=== PATIENT | female | born 1960 | race Two or more races ===

== ENCOUNTER → 2018-07-02 11:21 | Outpatient (CLI) | payer OTHER, SELFPAY ==
--- NOTE | 2018-07-01 15:15 | EMB_PTH ---
PATIENT: EMILY WASHINGTON LOC: [facility] U#:[id number] AGE/SX: 65/F ROOM: RE07/02/[address]: Dr. Homero Oliva MD : 1960 BED: DIS: SPEC #: [id number] RECD: 07/02/18 10:40 STATUS: MICHELLE THI #: [id number] HARPER: 07/01/18 15:[address]: Homero Oliva DEPT: SURGICAL PATHOLOGY RECD BY: Michael Graf Tissues: A - Endometrium, NOS B - Uterine cervix, NOS Procedures: Surgery Specimen Level IV HEADER OPERATION: Endometrial biopsy, cervical polypectomy PRE-OP DIAGNOSIS: N84.1, N95.0 TISSUE SUBMITTED: A - Endometrial biopsy, B - Cervical polyp MICROSCOPIC DIAGNOSIS A. Endometrium, biopsy: Polypoid fragments of simple hyperplasia without atypia. B. Cervical polyp, biopsy: Fragments of benign endocervical polyp, inflamed. AM:reshma 07/03/18 MICROSCOPIC DESCRIPTION Slides are reviewed. GROSS DESCRIPTION A - Received in fixative is one container labeled with the patient's name and designated endometrial biopsy. The specimen consists of multiple irregular fragments of light to dark lennon soft tissue that in aggregate measure 2.5 x 2 x 0.1 cm. The specimen is totally submitted in one cassette. B - Received in fixative is one container labeled with the patient's name and designated cervical polyp. The specimen consists of multiple irregular and polypoid fragments of light lennon soft tissue that in aggregate measure 2 x 1.5 x 0.2 cm. The specimen is totally submitted in one cassette. / SJ:rg 07/02/18 TC:1 CPT: 83056 x2
[2018-07-04 13:15] LABS: HPV Reflexed? NOT INDICATED
--- OUTSIDE RECORDS SUMMARY | 2018-10-03 15:30 | XMS RPT_ITS ---
:1960 Author Organization OH[facility] Care Team Providers Name Role Phone CHIKA DELGADILLO Admitting Unavailable CHIKA DELGADILLO Attending Unavailable CHIKA DELGADILLO Primary Care Unavailable MEENU JAMIL MD Consulting Unavailable PROVIDER, UNKNOWN Consulting Unavailable PROVIDER, UNKNOWN Consulting Unavailable PROVIDER, UNKNOWN Consulting Unavailable OMERO FERREIRA., DR. TEJAL Chapin Attending Unavailable Chika Delgadillo Attending Unavailable Chika Delgadillo Referring Unavailable PROBLEMS PROBLEMS DATE TYPE CONDITION / CODE ATTENDING STATUS SOURCE 07/02/2018 Unknown Z12.4 - Encounter Chika Delgadillo Active [facility] for screening for [facility] neoplasm of Repository cervix / Z12.4(ICD-10) 11/11/2017 Admitting OMERO Dinero MD., Active [facility] Diagnosis unspecified / TEJAL Bennett E78.5(ICD-10) Repository PROCEDURES PROCEDURES No Procedure Records FoundRESULTS RESULTS ENDOMETRIAL BX/CURETTINGS Observed: 07/01/2018 Status: F Source: [facility] 3:15 PM [facility] REPOSITORY Patient: EMILY WASHINGTON : 1960 (58/F) Acct Num: [id number] Phys: Chika Delgadillo MD Unit Num: [id number] Loc: [facility] Specimen: [id number] Received: 07/02/18 - 1040 Spec Type: ENDOM BX/C TISSUES 1 TISSUES: A. Endometrium, NOS B. Uterine cervix, NOS GROSS DESCRIPTION A - Received in fixative is one container labeled with the patient's name and designated endometrial biopsy. The specimen consists of multiple irregular fragments of light to dark lennon soft tissue that in aggregate measure 2.5 x 2 x 0.1 cm. The specimen is totally submitted in one cassette. B - Received in fixative is one container labeled with the patient's name and designated cervical polyp. The specimen consists of multiple irregular and polypoid fragments of light lennon soft tissue that in aggregate measure 2 x 1.5 x 0.2 cm. The specimen is totally submitted in one cassette. / SJ:reshma 07/02/18 TC:1 CPT: 99619 x2 HEADER OPERATION: Endometrial biopsy, cervical polypectomy PRE-OP DIAGNOSIS: N84.1, N95.0 TISSUE SUBMITTED: A - Endometrial biopsy, B - Cervical polyp MICROSCOPIC DESCRIPTION Slides are reviewed. MICROSCOPIC DIAGNOSIS A. Endometrium, biopsy: Polypoid fragments of simple hyperplasia without atypia. B. Cervical polyp, biopsy: Fragments of benign endocervical polyp, inflamed. AM:reshma 07/03/18 Signed Jourdan Manny, DO 07/03/18 <signature on file> Performed By: #### PEMB #### [facility] [address] 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 of containers..01 ThinPrep Vial TYPE CODE TESTS RESULT OUT OF RANGE REFERENCE UNITS LAB L7400.0800 . Normal DIAGN Comment Result Comment: NEGATIVE FOR INTRAEPITHELIAL LESION AND MALIGNANCY. LAB L7400.0900 . Normal ADEQ Comment Result Comment: Satisfactory for evaluation. Endocervical and/or squamous metaplastic cells (endocervical component) are present. LAB L7400.1400 . Normal PERFORM Comment Result Comment: Joshua Nichole, Him Coder (ASCP) LAB L7400.2575 . Normal TEST METHOD Comment Result Comment: This liquid based ThinPrep(R) pap test was screened with the use of an image guided system. LAB L7400.2600 . Normal . COMM LAB L7400.2700 . Normal PAPSMR Comment Result Comment: The Pap smear is a screening test designed to aid in the detection of premalignant and malignant conditions of the uterine cervix. It is not a diagnostic procedure and should not be used as the sole means of detecting cervical cancer. Both false-positive and false-negative reports do occur. LAB L7400.2800 . Normal HPV RFLX Comment Result Comment: The HPV DNA reflex criteria were not met with this specimen result therefore, no HPV testing was performed. Performed at: - [facility] [id number] Pesticide Applicator: Cari Palacios MD, Phone: [phone] Performed By: #### L7400.0357 #### [facility] (refer to report for specific site) refer to report for address and phone number LIPID Collected: 11/11/2017 Status: F Source: [facility] 9:50 AM [facility] REPOSITORY TYPE CODE TESTS RESULT OUT OF REFERENCE UNITS RANGE LAB CHOL(LOINC 50-199 mg/dL ) Cholesterol 186 Result Comment: Cholesterol Reference Interval: Less than 200 Desirable 200-239 Borderline high risk 240 and above High risk LAB TRIG(LOINC) 3-149 mg/dL Triglycerides 90 Result Comment: Triglyceride Reference Interval: Less than 150 Normal 150-199 Borderline high risk 200-499 High risk 500 or higher Very high risk LAB HD(LOINC) 40-59 mg/dL HDL High Cholesterol 69 Result Comment: HDL Reference Interval: Less than 40 Low - high risk 60 or above Optimal/lowers risk LAB LDL(LOINC) 0-129 mg/dL LDL Cholesterol 99 Result Comment: LDL is a calculated result and requires a 12-hr fast. LDL Reference Interval: Less than 100 Optimal 100-129 Near or above optimal 130-159 Borderline high risk 160-189 High risk 190 and above Very high risk Performed By: #### LIPID #### [facility] [address] [place] [id number] MAMM DIGITAL BILAT Observed: 10/29/2017 Status: F Source: [place] SCREEN 11:25 AM [facility] REPOSITORY [place] [id number] Patient: EMILY WASHINGTON. Phone#: : [phone] Age: 57 Gender: F Pt. Type: Out Account: [id number] Location: Ordering: CHIKA DELGADILLO Exam Date: 10/29/2017/8:06 Family Phys: MEENU JAMIL Charge Code: [id number] Physician: Tom Green Order #: [id number] Dose#: PROCEDURE: MAMM BILAT DIGITAL SCREENING WITH CAD COMPARISON: [facility], BILAT SCREENING, 01/24/2016, 13:35. INDICATIONS: Screening BREAST COMPOSITION: Scattered fibroglandular densities (25-50% glandular). FINDINGS: DIAGNOSTIC CATEGORY 1--NEGATIVE ASSESSMENT. RIGHT BREAST: No significant suspicious finding. No significant change has occurred. LEFT BREAST: No significant suspicious finding. No significant change has occurred. RECOMMENDATIONS: ROUTINE MAMMOGRAM AND CLINICAL EVALUATION. PLEASE NOTE: A NORMAL MAMMOGRAM DOES NOT EXCLUDE THE POSSIBILITY OF BREAST CANCER. A CLINICALLY SUSPICIOUS PALPABLE LUMP SHOULD BE BIOPSIED. THIS FACILITY UTILIZES A REMINDER SYSTEM TO ENSURE THAT ALL PATIENTS RECEIVE REMINDER LETTERS FOR APPOINTMENTS. THIS INCLUDES REMINDERS FOR ROUTINE MAMMOGRAMS, DIAGNOSITC MAMMOGRAMS, OR OTHER BREAST IMAGING INTERVENTIONS WHEN APPROPRIATE. THIS PATIENT WILL BE PLACED IN THE APPROPRIATE REMINDER SYSTEM. Dictated by: Clarita Brooks MD on 10/29/2017 at 12:05 Approved by: Clarita Brooks MD on 10/29/2017 at 12:05 ALLERGIES ALLERGIES No Allergies Records FoundENCOUNTERS ENCOUNTERS ADMIT/DISCHARGE ACCOUNT NUMBER ADMITTING ENCOUNTER LOCATION SOURCE CLASS 07/02/2018 [id number] Ambulatory [facility] ding:[facility] Repository 11/11/2017/11/16/19 [id number] Ambulatory [address] BBuilding:BE [facility] Repository 10/29/2017/10/30/19 [id number] CHIKA DELGADILLO Ambulatory [address] Repository PAYERS PAYERS ENCOUNTER GUARANTOR PAYER SUBSCRIBER SOURCE 07/02/2018 EMILY [facility] Primary EMILY [place] [id number] [place] Insurance:MEDICAL STUTZMANDOB: [place] [address], [place] [id number]: . Number: Repository () [id number] Date:[id number] [address] [place] [id number]: 07/02/2018 Secondary NOT GIVENUNK [place] Insurance:SELF PAY [facility] Number: Effective Repository Date:2018-07-02 11/11/2017 EMILY [facility] STUTZMANDOB: Insurance:MEDICAL STUTZMANDOB: [facility] [address] [id number] Repository [facility] Number: 8 [facility] [address] [id number] [facility] [place] [place] [address]Ngv: ([phone]) Date:2017-11-11 [id number]: (HP) [phone] Name:BPO BOX ()Tel: [phone], [place] 000-0000 () [phone]: 10/29/2017 EMILY [facility] CenterUTZMANDOB: Insurance:MEDICAL STUTZMANDOB: [facility] [id number] [facility] [id number] [facility] [address] OUTPATIENTPolicy 8 [facility] Repository Cb MENDOZA Number: 62Cb SEARS [id number]: [id number] Date:Plan Name:M3P O () [address] [place] [address] [id number]:
== END ==
PROVIDERS: Referring Provider Obstetrics & Gynecology; Visit Provider Obstetrics & Gynecology
DX: N85.01 Benign endometrial hyperplasia (principal); N84.1 Polyp of cervix uteri; Z12.4 Encounter for screening for malignant neoplasm of cervix
CPT/HCPCS: 87624; 88175; 88305; G0145

== ENCOUNTER 2018-08-18 05:37 | Day surgery (SDC) | payer OTHER, SELFPAY ==
[2018-08-13 15:48] LABS: International Normalized Ratio 0.9; Partial Thromboplast Time 28.1 Seconds (24.1-36.2); Prothrombin Time (Protime)PT. 12.6 SECONDS (11.7-14.9)
[2018-08-13 15:51] LABS: Hematocrit 40.2 % (37-47); Hemoglobin 13.5 g/dl (12.0-15.0); Mean Corp Hgb Conc 33.6 g/gl (32-36); Mean Corpuscular Hgb 31.9 pg (27.0-32.0); Mean Platelet Vol. 10.4 fl (6.2-12.0); Platelet Count 283 K/mm3 (150-450); RBC Distribution Width SD 40.9 fl (35.1-43.9); Red Blood Count 4.23 M/mm3 (4.2-5.4); White Blood Count 6.1 K/mm3 (4.4-11.0)
[2018-08-13 15:54] LABS: Scan Indicated on CBC? Y/N NO
[2018-08-13 16:03] LABS: ALB/GLOB Ratio 0.9 RATIO (0.9-2.4); AST(SGOT) 19 U/L (15-37); Alanine Aminotransfer ALT/SGPT 23 U/L (13-56); Alkaline Phosphatase 73 U/L (45-117); Anion Gap 10 (5-15); BUN 14 mg/dL (7-18); BUN/Creat Ratio 16.3 RATIO (10-20); Calcium,Total 9.2 mg/dL (8.5-10.1); Chloride 102 mmol/L (98-107); Creatinine, Serum 0.86 mg/dL (0.55-1.02); EST Glomerular Filtration Rate 72 mL/min (>60); Est Glom Filt Rate - Afr Amer 87 mL/min (>60); Globulin 4.4 g/dL (2.2-4.2); Glucose 80 mg/dL (74-106); Potassium 3.5 mmol/L (3.5-5.1); Protein, Total 8.4 g/dL (6.4-8.2); Sodium Level 141 mmol/L (136-145)
--- NOTE | 2018-08-17 17:27 | PCM.HP.BLA ---
History and Physical Date of Admission: 08/18/18 Surgical History and Physical Adilia Wilson, a 58 year old female 2 0 0 0 2, presents for RAVH/BSO on August 18, 2018 at 0800. -- Postmenopausal Bleeding and Simple EM Hyperplasia -- Irregular pap (ASCUS) and cervical polyp. EMBx showed simple endometrial hyperplasia and patient desires proceeding with hysterectomy rather than use ongoing progesterone witdrawal. MEDICATIONS HISTORY: Patient is also takin. Liptor 10mg, 1 PO daily 2. Levaquin 500 mg tablet ALLERGIES: NKDA Infections - Chicken pox Illnesses - no serious past illnesses Accidents - no injuries of consequence Hospitalizations - see surgery Review of Systems: GENERAL - Denies fever, or chills SKIN - Denies skin changes EYES - Denies visual changes EARS - Denies difficulty hearing NOSE - Denies nasal congestion or bleeding MOUTH - Denies sore throat or difficulty swallowing NECK - Denies pain or swelling RESPIRATORY - Denies shortness of breath or wheezing CARDIOVASCULAR - Denies palpitations or chest pain GASTROINTESTINAL - Denies nausea, vomiting, diarrhea, constipation GENITOURINARY - Denies dysuria, frequency of urination, incontinence of urine MUSCULOSKELETAL - Denies joint or muscle pain NEUROLOGICAL - Denies localized numbness or weakness PSYCHIATRIC - Denies depression or anxiety ENDOCRINE - Denies heat or cold intolerance, weight loss or gain HEMATO-IMMUNOLOGIC - Denies excessive bleeding with cuts SOCIAL HISTORY: Alcohol Use - denies drinking Smoking - denies smoking Diet - balanced Diet Lifestyle - moderate stress lifestyle and Exercise - active Seat Belt Use - always 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 Father: Diabetes and HTN/ High Cholesterol. Paternal Grandmother: Breast Cancer and Cervical Cancer. MENSTRUAL HISTORY: LMP Known?- DefiniteAmount/Duration - 3 days light, Regularity - Irregular, Frequency - variable days, LMP - 07/31/18 PAST PREGNANCIES: Total Pregnancies - 2; Full Term Pregnancies - 2; Premature - 0; Abortions, Induced - 0; Abortions, Spontaneous - 0; Ectopics - 0; Multiple Births - 0; Living Children - 2 SURGICAL HISTORY: 1. ; - Failure to Progress 2. ; - repeat PHYSICAL EXAM BP- 154/74 Sitting, Right arm, regular cuff Weight- 156.27576 lbs Height- 60.00 inch BMI:30.53 CONSTITUTIONAL - NAD, well nourished, and well developed SKIN - No rash, lesions, or ulcers HEENT - Normocephalic, PERRLA, EOMI NECK - No nodes, no nuchal rigidity and thyroid normal size and texture LYMPH NODES - Palpation of lymph nodes in neck and groins within normal limits LUNGS - CTA x2 without wheezes, crackles or rales CARDIAC - Regular rate and rhythm without rubs, murmurs, or gallops BREAST - No dominant masses, no tenderness, no axillary adenopathy, no nipple discharge, no skin changes ABDOMEN - Without hepatosplenomegaly, distention, masses, rebound, or guarding; normal bowel sounds; no hernias EXTREMITIES - No edema or calf tenderness NEUROLOGICAL - Cranial nerves II-XII grossly intact PSYCHIATRIC - A and O to time, place, person, mood and affect DETAILED PELVIC EXAM External Genitial Vagina - non-tender without lesions Urethra/Urethral Meatus - non-tender Bladder - non-tender Vagina - loss of rugae Cervix - without cervical motion tenderness and has normal size and features without evident lesions and 0.25 cm polyp noted on posterior cervix removed with ring forceps Uterus - 5-6 cm in size, mobile and nontender Adnexa - clear without massess or tenderness ASSESSMENT/PLAN: 1. Postmenopausal Bleeding and Simple Endometrial Hyperplasia Without Atypia Discussed options for treatment including ongoing progesterone vs proceeding with simple hysterectomy. Pt desires proceeding with RAVH/BSO. Discussed RBAs and all questions answered.
--- NOTE | 2018-08-17 17:30 | HP.PCM_ITS ---
History and Physical Date of Admission: 08/18/18 Surgical History and Physical Adilia Wilson, a 58 year old female 2 0 0 0 2, presents for RAVH/BSO on August 18, 2018 at 0800. -- Postmenopausal Bleeding and Simple EM Hyperplasia -- Irregular pap (ASCUS) and cervical polyp. EMBx showed simple endometrial hyperplasia and patient desires proceeding with hysterectomy rather than use ongoing progesterone witdrawal. MEDICATIONS HISTORY: Patient is also takin. Liptor 10mg, 1 PO daily 2. Levaquin 500 mg tablet ALLERGIES: NKDA Infections - Chicken pox Illnesses - no serious past illnesses Accidents - no injuries of consequence Hospitalizations - see surgery Review of Systems: GENERAL - Denies fever, or chills SKIN - Denies skin changes EYES - Denies visual changes EARS - Denies difficulty hearing NOSE - Denies nasal congestion or bleeding MOUTH - Denies sore throat or difficulty swallowing NECK - Denies pain or swelling RESPIRATORY - Denies shortness of breath or wheezing CARDIOVASCULAR - Denies palpitations or chest pain GASTROINTESTINAL - Denies nausea, vomiting, diarrhea, constipation GENITOURINARY - Denies dysuria, frequency of urination, incontinence of urine MUSCULOSKELETAL - Denies joint or muscle pain NEUROLOGICAL - Denies localized numbness or weakness PSYCHIATRIC - Denies depression or anxiety ENDOCRINE - Denies heat or cold intolerance, weight loss or gain HEMATO-IMMUNOLOGIC - Denies excessive bleeding with cuts SOCIAL HISTORY: Alcohol Use - denies drinking Smoking - denies smoking Diet - balanced Diet Lifestyle - moderate stress lifestyle and Exercise - active Seat Belt Use - always 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 Father: Diabetes and HTN/ High Cholesterol. Paternal Grandmother: Breast Cancer and Cervical Cancer. MENSTRUAL HISTORY: LMP Known?- DefiniteAmount/Duration - 3 days light, Regularity - Irregular, Frequency - variable days, LMP - 07/31/18 PAST PREGNANCIES: Total Pregnancies - 2; Full Term Pregnancies - 2; Premature - 0; Abortions, Induced - 0; Abortions, Spontaneous - 0; Ectopics - 0; Multiple Births - 0; Living Children - 2 SURGICAL HISTORY: 1. ; - Failure to Progress 2. ; - repeat PHYSICAL EXAM BP- 154/74 Sitting, Right arm, regular cuff Weight- 156.25142 lbs Height- 60.00 inch BMI:30.53 CONSTITUTIONAL - NAD, well nourished, and well developed SKIN - No rash, lesions, or ulcers HEENT - Normocephalic, PERRLA, EOMI NECK - No nodes, no nuchal rigidity and thyroid normal size and texture LYMPH NODES - Palpation of lymph nodes in neck and groins within normal limits LUNGS - CTA x2 without wheezes, crackles or rales CARDIAC - Regular rate and rhythm without rubs, murmurs, or gallops BREAST - No dominant masses, no tenderness, no axillary adenopathy, no nipple discharge, no skin changes ABDOMEN - Without hepatosplenomegaly, distention, masses, rebound, or guarding; normal bowel sounds; no hernias EXTREMITIES - No edema or calf tenderness NEUROLOGICAL - Cranial nerves II-XII grossly intact PSYCHIATRIC - A and O to time, place, person, mood and affect DETAILED PELVIC EXAM External Genitial Vagina - non-tender without lesions Urethra/Urethral Meatus - non-tender Bladder - non-tender Vagina - loss of rugae Cervix - without cervical motion tenderness and has normal size and features without evident lesions and 0.25 cm polyp noted on posterior cervix removed with ring forceps Uterus - 5-6 cm in size, mobile and nontender Adnexa - clear without massess or tenderness ASSESSMENT/PLAN: 1. Postmenopausal Bleeding and Simple Endometrial Hyperplasia Without Atypia Discussed options for treatment including ongoing progesterone vs proceeding with simple hysterectomy. Pt desires proceeding with RAVH/BSO. Discussed RBAs and all questions answered.
[2018-08-18] VITALS (11 sets, daily range): BP systolic 90–152; BP diastolic 53–73; PULSE 61–95; RESP 16–18; TEMP 36.5–37.3; O2SAT 92–100; BMI 29.9; BMI 30.2
--- NOTE | 2018-08-18 08:00 | HYST_PTH ---
PATIENT: EMILY WASHINGTON [place] [facility] [place][id number] AGE/SX: 58/F ROOM: RE08/18/[address]: Dr. Homero Oliva MD : 1960 BED: DIS: 08/19/2018 SPEC #: [id number] RECD: 08/18/18 12:28 STATUS: MICHELLE HANKSCarlos #: [id number] HARPER: 08/18/18 08:[address]: Homero Oliva DEPT: SURGICAL PATHOLOGY RECD BY: Michael Graf ENTERED: 08/18/18 14:04 SP TYPE: HYSTERECT OTHR DR: Dr. Manjula Bain MD Tissues: Uterus, NOS Procedures: Surgery Specimen Level V HEADER OPERATION: Robotic assisted vaginal hysterectomy, bilateral salpingo-oophorectomy PRE-OP DIAGNOSIS: Postmenopausal bleeding and simple endometrial hyperplasia without atypia TISSUE SUBMITTED: Uterus, cervix, bilateral fallopian tubes and bilateral ovaries MICROSCOPIC DIAGNOSIS Uterus, hysterectomy: Cervix - mild chronic inflammation and nabothian cyst. Endometrium - focal simple hyperplasia without atypia. Myometrium - adenomyosis. Right ovary - benign hemorrhagic cyst. Right fallopian tube - no pathologic change. Left ovary - hemorrhagic corpus luteal cyst and benign epithelial cyst. Left fallopian tube - no pathologic change. AM:reshma 08/19/18 MICROSCOPIC DESCRIPTION Slides are reviewed. GROSS DESCRIPTION Received in fixative is one container labeled with the patient's name and designated uterus. The specimen consists of a uterus with attached right and left fallopian tubes and ovaries. The uterus with cervix measures 8.5 x 5.2 x 4 cm and weighs 72.6 gm. The ectocervix is oval in contour and grossly unremarkable. The endocervical canal measures 3.2 cm in length and is grossly unremarkable. The triangular endometrial cavity measures 3.5 x 3 cm. The velvety, reddish-light lennon endometrium measures up to 0.2 cm in thickness. The myometrium measures 1.6 cm in length and grossly is consistent with adenomyosis. The right ovary is yellow-pink and crinkled in appearance measuring 2 x 1.2 x 1 cm. Serial sections reveal a single blood filled cyst measuring 5 mm in greatest dimension. The adjacent fallopian tube measures 7 cm in length and 0.6 cm in average diameter. No tubo-ovarian adhesions are seen. The left ovary is similar in appearance to the right ovary and measures 3 x 1.6 x 1 cm. Serial sections reveal multiple cysts ranging in size from 0.5 to 0.6 cm and containing clear to bloody fluid. The adjacent left fallopian tube is similar in appearance to right and measures 6.5 cm in length and 0.5 cm in average diameter. No tubo-ovarian adhesions are seen. The fimbriated end has a normal villous appearance. Adjacent to the fimbriated end is a smooth glistening cyst containing clear fluid. Electric Cutter Operator sections are submitted in 11 cassettes as follows: 1 - anterior cervix, 2 - posterior cervix, 3 & 4 - anterior myometrial wall, 5 - remainder of anterior endometrium with adjacent myometrium, 6 & 7 - posterior myometrial wall, 8 & 9 - remainder of posterior endometrium and adjacent myometrium, 10 - right fallopian tube and ovary, 11 - left fallopian tube, ovary and paratubal cyst. / AM:reshma 08/18/18 TC:5 CPT: 94890
--- NOTE | 2018-08-18 08:10 | OP.PCM_ITS ---
Report of Operation Date of Procedure: 08/18/18 Pre-Operative Diagnosis: Simple Endometrial Hyperplasia, Postmenopausal Bleeding Post-Operative Diagnosis: Simple Endometrial Hyperplasia, Postmenopausal Bleeding, Dense Adhesions Surgery/Procedure Performed:: Robotic Assisted Vaginal Hysterectomy, Bilateral Salpingo-Oophorectomy, Lysis of Adhesions Description of Surgical Findings:: 8 cm uterus with normal-appearing fallopian tubes and ovaries. Dense adhesions of the omentum to the anterior abdominal wall. Dense adhesions of the uterus to the anterior abdominal wall. Dense adhesions of the rectosigmoid to the posterior aspect of the cervix. Adhesions of the ovaries to the pelvic sidewalls. retail seasonal specialist: Rebeca Simms retail seasonal specialist: Michael Tobin Type of Anesthesia:: Epidural Anesthesiologist: Filipe Ayala Estimated Blood Loss (mL): Minimal Fluids Replaced: Crystalloid Description of Procedure: Surgeon: Homero Oliva MD, FACOG Indication: This is a 58 year old patient who has been having problems with postmenopausal bleeding and simple endometrial hyperplasia. Patient has had 2 prior sections. The patient declines long-term progesterone use. The patient has been counseled regarding the risks, benefits and alternatives of this procedure including the possibility of bleeding, infection, and injury to surrounding structures such as bowel bladder and all questions were answered. Procedure: Pt taken to the operating room where after induction of general anesthesia the patient was prepped and draped in the usual sterile fashion and placed on a non-slip Huggy-u-vac device. Trendendelenburg test was satisfactory. Bladder was drained of urine with a Nguyễn catheter which was left in place. Anterior cervix grasped and cervix was dilated to about 3-4 mm. Uterus sounded to 8-9 cms. 0-Vicryl suture was placed at the 3:00 and 9:00 position of the cervix. A medium V-care device was then placed in the uterus to allow uterine manipulation and attention was turned to the laparoscopic portion of the procedure. Ropivocaine 0.5% was injected approximately 2-3 cm superior to the umbilicus and an 8 mm robotic camera port was introduced directly with intraperitoneal placement confirmed with insufflation. Midline omental adhesions were encountered and these were taken down with monopolar scissors from a right robotic port under direct visualization through the midline 8 mm robotic camera port. After clearing the dense omental adhesions the left robotic and pier master assistant ports were placed under direct visualization. The robotic ports were introduced under direct visualization approximately 11-13 cm lateral and 2 cm inferior to the umbilical port. The 5 mm left upper quadrant port was introduced; airseal insufflation with CO2 was used. The above findings were noted in the pelvis. Robot was docked without difficulty and attention turned to the robotic portion of the procedure. Approximately 22 cc of Ropivicaine was used. Bilateral infundibulocal ligaments/mesosalpinx were ligated with 35 rod bipolar coagulation to the level of the round ligament after ligating the adhesions between the ovary and the pelvic sidewall. Adhesions of the rectosigmoid were noted to be near the posterior vaginal cuff and these were taken down sharply without cautery. The posterior aspect of the cervix was identified and then opened for about 1 cm using 25 watt monopolar cautery identifying the V-care device which had been placed vaginally. Bladder flap was opened after ligating dense adhesions and divided to the level of the round ligaments using monopolar cautery. Progressive bites were then ligated on each side of the cervix with 35 rod bipolar cautery to the uterine arteries. The anterior vaginal mucosa was then entered and cervix circumscribed with monopolar cautery. Uterus and attached ovaries and tubes were then removed through the vagina. Vaginal cuff was closed first with 0-Vicryl Simin stitches placed at each angle followed by closure of the mid-cuff with 0-Monocryl V-lock suture in two layers. Pelvis was copiously irrigated with saline and some oozing from the adhesions were noted. FloSeal was placed across this area to help with postoperative hemostasis. Clear yellow urine was noted from the Nguyễn catheter. Robot was undocked and trocars were removed with as much gas as possible. Incisions were closed with 4-0 Monocryl subcuticular sutures and incisions covered with steri-strips. The patient tolerated the procedure well and was taken to the recovery room in satisfactory condition. Sponge, instruments and needle counts were all correct. There were no apparent complications of the surgery. Cefotan 2 gms IV was given prior to the procedure. Specimen to Pathology: Uterus and bilateral tubes and ovaries Grafts/Implants Used: None - Complications None - Admit VTE Documentation VTE Present on Admission: Yes VTE Mechan Device Prophylaxis: SCD's VTE Pharm Prophylaxis ordered?: Yes
--- NOTE | 2018-08-18 08:13 | DCINST_ITS ---
Discharge Diet: No Restrictions Discharge Activity: Return to Normal Activity, May Not Drive - while taking narcotic pain medications., May Shower May resume sexual activity in: 6-8 weeks Call your doctor if your incision/area has: Continuous Slow Oozing, Sudden Increased Bleeding, Increased Pain/ Swelling, Increased Redness, Foul Smelling Discharge Call your doctor if you observe: Fever of 101 or Higher, Inability to urinate, Inability to have a bowel movement, Using more than one pad per hour Allergies/Adverse Reactions: Allergies No Known Allergies Allergy (Verified 08/11/18 13:48) Medications to take at Discharge Atorvastatin Calcium [Lipitor] 10 mg PO QHS 08/11/18 Ubidecarenone [Coq-10] 100 mg PO BID 08/11/18 Docusate Sodium [Colace] 100 mg PO BID PRN PRN #60 cap 08/18/18 Oxycodone [Oxyir] 5 mg PO Q6H PRN PRN 7 Days #20 tab 08/18/18 The following prescriptions were given: Oxycodone [Oxyir] 5 mg PO Q6H PRN PRN 7 Days #20 tab PRN Reason: Severe Pain (-04/23) Docusate Sodium [Colace] 100 mg PO BID PRN PRN #60 cap PRN Reason: Constipation Primary Care Physician: Manjula Bain MD [Primary Care Provider] - Test Results: Test results from this visit will be discussed in further detail at your follow- up appointment, if applicable. Please Follow Up With: Homero Oliva MD When: 2-3 weeks
[2018-08-18] MEDS: Ropivacaine 0.5% 30 ML Vial (08:45)
[2018-08-18] MEDS: Dextrose 5%-Lactated Ringers 1,000 ML 150 ML IV ×2 (12:56→21:09)
[2018-08-18] MEDS: 0.9% NaCl Peripheral Flush Adult/Peds IV (16:43)
[2018-08-18] MEDS: Ketorolac 30 MG/ML Syringe IV ×2 (16:44→22:45)
[2018-08-18] MEDS: Enoxaparin 30 MG/0.3 ML Syringe SC (16:52)
[2018-08-18] MEDS: BENZOCAINE/MENTHOL 1 LOZENGE MUCOUS MEM (21:05)
[2018-08-18] MEDS: Atorvastatin Calcium 10 MG Tablet PO (21:05)
[2018-08-19 02:05] VITALS: BP 115/69; PULSE 68; RESP 16; TEMP 36.6; O2SAT 94
[2018-08-19] MEDS: Dextrose 5%-Lactated Ringers 1,000 ML 150 ML IV (02:10)
[2018-08-19] MEDS: BENZOCAINE/MENTHOL 1 LOZENGE MUCOUS MEM (02:11)
[2018-08-19 06:34] LABS: Hematocrit 33.6 % (37-47); Mean Corp Hgb Conc 32.7 g/gl (32-36); Mean Corpuscular Hgb 31.3 pg (27.0-32.0); Mean Corpuscular Volume 95.7 fL (81-99); Mean Platelet Vol. 9.7 fl (6.2-12.0); Platelet Count 223 K/mm3 (150-450); RBC Distribution Width CV 12.5 % (11.6-14.6); RBC Distribution Width SD 43.6 fl (35.1-43.9); Red Blood Count 3.51 M/mm3 (4.2-5.4); White Blood Count 10.6 K/mm3 (4.4-11.0)
[2018-08-19 06:39] LABS: Scan Indicated on CBC? Y/N NO
[2018-08-19 06:57] LABS: Creatinine, Serum 0.76 mg/dL (0.55-1.02); EST Glomerular Filtration Rate 82 mL/min (>60); Est Glom Filt Rate - Afr Amer 100 mL/min (>60)
[2018-08-19 07:12] VITALS: O2SAT 92
[2018-08-19 08:06] VITALS: BP 102/50; PULSE 66; RESP 16; TEMP 36.9; O2SAT 98
--- NOTE | 2018-08-19 08:54 | PCM.PN.OB ---
Subjective: Patient without complaints. Tolerating diet well. Minimal pain. Positive flatus. Ready to go home. - Physical Exam Vital Signs Temp Pulse Resp BP Pulse Ox 98.4 F 66 16 102/50 L 98 08/19/18 08:06 08/19/18 08:06 08/19/18 08:06 08/19/18 08:06 08/19/18 08:06 Oxygen Flow Rate (L/min) 2 Oxygen Delivery Method Room Air Weight: 153 lb 10.595 oz Body Mass Index (BMI) 30.2 Intake and Output for Last 24 Hours 08/17/18 08/18/18 08/19/18 23:59 23:59 23:59 Intake Total 2969 / 2969 3078 / 3078 Output Total 1984 Balance 984 / 984 1103 / 1103 Laboratory Tests Past 24 Hrs 08/19/18 08/19/18 06:20 06:20 WBC 10.6 RBC 3.51 L Hgb 11.0 L Hct 33.6 L MCV 95.7 MCH 31.3 MCHC 32.7 RDW 12.5 RDW Differential 43.6 Plt Count 223 MPV 9.7 Creatinine 0.76 Estim Creat Clear Calc 87.70 Est GFR (MDRD) Af Amer 100 Est GFR (MDRD) Non-Af 82 Wounds are clean, dry, intact. Good urine output. Hemoglobin and creatinine okay. Minimal vaginal bleeding. Medical Necessity - Tobacco Use Smoking Status: Never smoker Tobacco Use: Non-smoker Assessment/Plan Doing well postoperative day #1 status post robotic assisted vaginal hysterectomy and bilateral salpingo-oophorectomy. Will release to home with routine instructions.
== END 2018-08-19 09:42 | disposition home or self-care (01) ==
LOC: SDC 05:38 → AC 05:41 → MS3 08:51
PROVIDERS: Referring Provider Obstetrics & Gynecology; Visit Provider Obstetrics & Gynecology
PROC: 0UT94ZZ Resection of Uterus, Percutaneous Endoscopic Approach (ICD-10-PCS; CPT 58571; principal; 2018-08-18 07:40)
DX: N85.01 Benign endometrial hyperplasia (principal); N83.12 Corpus luteum cyst of left ovary; N80.0 Endometriosis of uterus; N88.8 Other specified noninflammatory disorders of cervix uteri; E78.00 Pure hypercholesterolemia, unspecified
CPT/HCPCS: 00940; 58571; S2900; 36415; 80053; 82565; 85027; 85610; 85730; 86850; 86900; 88307; 93005; J7120; A4216; J2405